=== PATIENT | female | born 1940 | race Caucasian/White ===

== ENCOUNTER 2018-09-05 19:33 | Emergency (ER) | payer MEDICARE ==
[~2018-09-05] VITALS: Ht 162.6 cm; Wt 38.6 kg
--- OUTSIDE RECORDS SUMMARY | 2018-09-05 19:36 | XMS REPORT | Continuity of Care Document ---
Author Author [facility] Interface Address Unknown Phone Unavailable Problems Problem Status Onset Date Classification Date Reported Comments Source Easy bruisability Active Diagnosis 10/14/2016 Christamatthew Dixiefabian Elevated BP without diagnosis of hypertension Active Diagnosis 10/14/2016 Christamatthew Zohreh Acute tracheobronchitis Active Problem 06/11/2017 Christamatthew Dixiefabian BMI less than 19,adult Active Problem 06/11/2017 Judekendra Pantojaimanfabian Mucopurulent chronic bronchitis Active Problem 06/11/2017 Christamatthew Dixiefabian Hypothyroidism, unspecified type Active Problem 06/11/2017 Christamatthew Dixiefabian Sebaceous cyst of skin of breast, unspecified laterality Active Diagnosis 06/11/2017 Geraldine Bruner Major depressive disorder with single episode, in full remission Active Problem 06/11/2017 Christamatthew Zohreh Accidental fall, subsequent encounter Active Diagnosis 04/05/2017 Geraldine Bruner Right elbow pain Active Diagnosis 04/05/2017 Geraldine Bruner Neck muscle spasm Active Diagnosis 07/17/2016 Christamatthew Zohreh Encounter to establish care Active Diagnosis 07/02/2016 Christamatthew Zohreh Medications Medication Details Route Status Patient Instructions Ordering Provider Order Date Source Sertraline HCl 1 tablet Orally Active 50 MG Orally Once a day [facility] 06/03/2017 Geraldine Bruner Cyclobenzaprine HCl 1 tablet Orally Active 5 MG Orally once every night [facility] 07/14/2016 Geraldine Bruner Mirtazapine 1 tablet before bedtime in the evening Orally Active 15 MG Orally Once a day [facility] 06/29/2016 Geraldine Bruner Ipratropium [place] as directed Inhalation Active 0.02 % Inhalation Twice a day [facility] 06/29/2016 Geraldine Bruenr Levofloxacin not defined NA Active [facility] Geraldine Bruner Mirtazapine 1/2 - 1 tablet before bedtime in the evening Orally Active 15 MG Orally Once a day [facility] Geraldine Bruner Advil 1 tablet with food or milk as needed Orally Active 200 MG Orally every 6 hrs [facility] Enayet Rahim Allergies, Adverse Reactions, Alerts Substance Category Reaction Severity Reaction type Status Date Reported Comments Source codeine Adverse Reaction Info Not Available Adverse Reaction Active 06/03/2017 Enayet Rahim Immunizations Immunization Date Given Site Status Last Updated Comments Source FLUCELVAX QUADRIVALENT 06/03/2017 completed Enayet Rahim Results Order Name Results Value Reference Range Date Interpretation Comments Source Vital Signs Vital Sign Value Date Comments Source Weight 88 06/03/2017 Enayet Rahim Height 64 06/03/2017 Enayet Rahim Temperature Oral (F) 96.5 F 06/03/2017 Enayet Rahim Diastolic (mm Hg) 89 06/03/2017 Enayet Rahim Systolic (mm Hg) 131 06/03/2017 Enayet Rahim Weight 89 03/24/2017 Enayet Rahim Height 64 03/24/2017 Enayet Rahim Temperature Oral (F) 97.0 F 03/24/2017 Enayet Rahim Diastolic (mm Hg) 115 03/24/2017 Enayet Rahim Systolic (mm Hg) 134 03/24/2017 Enayet Rahim Weight 91.5 10/09/2016 Enayet Rahim Height 64 10/09/2016 Enayet Rahim Temperature Oral (F) 96.5 F 10/09/2016 Enayet Rahim Diastolic (mm Hg) 102 10/09/2016 Enayet Rahim Systolic (mm Hg) 165 10/09/2016 Enayet Rahim Weight 87 07/14/2016 Enayet Rahim Height 64 07/14/2016 Enayet Rahim Temperature Oral (F) 96.0 F 07/14/2016 Enayet Rahim Diastolic (mm Hg) 83 07/14/2016 Enayet Rahim Systolic (mm Hg) 136 07/14/2016 Enayet Rahim Weight 86.5 06/29/2016 Enayet Rahim Height 64 06/29/2016 Enayet Rahim Temperature Oral (F) 94.0 F 06/29/2016 Enayet Rahim Diastolic (mm Hg) 107 06/29/2016 Enayet Rahim Systolic (mm Hg) 164 06/29/2016 Geraldine Bruner Encounters Location Location Details Encounter Type Encounter Number Reason For Visit Attending Provider ADM Date DC Date Status Source Procedures Procedure Code Date Perfomer Comments Source
--- OUTSIDE RECORDS SUMMARY | 2018-09-05 19:36 | XMS REPORT ---
Author Author Tammy Duran Organization [employer] Address Unknown Phone Unavailable Care Team Providers Care Food Writer Name Role Phone Tammy Duran CP Unavailable Allergies, Adverse Reactions, Alerts Substance Reaction Event Type codeine Info Not Available Drug Allergy Problems Problem Type Condition Code Onset Dates Condition Status Assessment Sebaceous cyst of skin of breast, unspecified laterality N60.89 Active Problem Mucopurulent chronic bronchitis J41.1 Active Problem Colon cancer screening Z12.11 Active Problem Major depressive disorder with single episode, in full remission F32.5 Active Problem Hypothyroidism, unspecified type E03.9 Active Assessment Major depressive disorder with single episode, in full remission F32.5 Active Problem Acute tracheobronchitis J20.9 Active Problem BMI less than 19,adult Z68.1 Active Medications Medication Code System Code Instructions Start Date End Date Status Dosage Sertraline HCl [facility] 34357352399 50 MG Orally Once a day Jun 03, 2017 Active 1 tablet Mirtazapine [facility] 51268968788 15 MG Orally Once a day Active 1/2 - 1 tablet before bedtime in the evening Levofloxacin [facility] [address]-18 Active not defined Advil [facility] 98371274483 200 MG Orally every 6 hrs Active 1 tablet with food or milk as needed Vital Signs Date/Time: Jun 03, 2017 BMI 15.10 Index Weight 88 lbs Height 64 in Temperature 96.5 F Blood Pressure Diastolic 89 mm Hg Blood Pressure Systolic 131 mm Hg Results No Known Results Immunizations Vaccine Administration Date FLUCELVAX QUADRIVALENT Jun 03, 2017 Summary Purpose [employer] Submission
--- OUTSIDE RECORDS SUMMARY | 2018-09-05 19:36 | XMS REPORT ---
Author Author Tammy Duran Organization [employer] Address Unknown Phone Unavailable Care Team Providers Care Electronic Repair Troubleshooter Name Role Phone Tammy Duran CP Unavailable Allergies, Adverse Reactions, Alerts Substance Reaction Event Type codeine Info Not Available Drug Allergy Problems Problem Type Condition Code Onset Dates Condition Status Problem Acute tracheobronchitis J20.9 Active Problem BMI less than 19,adult Z68.1 Active Problem Mucopurulent chronic bronchitis J41.1 Active Assessment Neck muscle spasm M62.838 Active Problem Colon cancer screening Z12.11 Active Problem Hypothyroidism, unspecified type E03.9 Active Medications Medication Code System Code Instructions Start Date End Date Status Dosage Ipratropium [place] [facility] [address]-07 0.02 % Inhalation Twice a day June 29, 2016 Nov 26, 2016 Active as directed Mirtazapine [facility] [address]-28 15 MG Orally Once a day June 29, 2016 Active 1/2 - 1 tablet before bedtime in the evening Cyclobenzaprine HCl [facility] [address]-75 5 MG Orally once every night July 14, 2016 August 03, 2016 Active 1 tablet Levofloxacin [facility] [address]-77 Active not defined Vital Signs Date/Time: July 14, 2016 BMI 14.93 Index Weight 87 lbs Height 64 in Temperature 96.0 F Blood Pressure Diastolic 83 mm Hg Blood Pressure Systolic 136 mm Hg Results No Known Results Summary Purpose [employer] Submission
--- OUTSIDE RECORDS SUMMARY | 2018-09-05 19:36 | XMS REPORT ---
Author Author Tammy Duran Organization [employer] Address Unknown Phone Unavailable Care Team Providers Care Extrusion Bender Name Role Phone Tammy Duran CP Unavailable Allergies, Adverse Reactions, Alerts Substance Reaction Event Type codeine Info Not Available Drug Allergy Problems Problem Type Condition Code Onset Dates Condition Status Assessment Easy bruisability R23.8 Active Assessment Elevated BP without diagnosis of hypertension R03.0 Active Problem Acute tracheobronchitis J20.9 Active Problem BMI less than 19,adult Z68.1 Active Problem Mucopurulent chronic bronchitis J41.1 Active Assessment BMI less than 19,adult Z68.1 Active Assessment Mucopurulent chronic bronchitis J41.1 Active Problem Colon cancer screening Z12.11 Active Problem Hypothyroidism, unspecified type E03.9 Active Medications Medication Code System Code Instructions Start Date End Date Status Dosage Levofloxacin [facility] [address]-11 Active not defined Mirtazapine [facility] [address]-81 15 MG Orally Once a day June 29, 2016 Active 1 tablet before bedtime in the evening Ipratropium [place] [facility] [address]-33 0.02 % Inhalation Twice a day June 29, 2016 Nov 26, 2016 Active as directed Vital Signs Date/Time: October 09, 2016 BMI 15.70 Index Weight 91.5 lbs Height 64 in Temperature 96.5 F Blood Pressure Diastolic 102 mm Hg Blood Pressure Systolic 165 mm Hg Results No Known Results Summary Purpose [employer] Submission
--- OUTSIDE RECORDS SUMMARY | 2018-09-05 19:36 | XMS REPORT ---
Author Author Tammy Duran Organization [employer] Address Unknown Phone Unavailable Care Team Providers Care Bottom Buffer Name Role Phone Tammy Duran CP Unavailable Allergies, Adverse Reactions, Alerts Substance Reaction Event Type codeine Info Not Available Drug Allergy Problems Problem Type Condition Code Onset Dates Condition Status Assessment Colon cancer screening Z12.11 Active Assessment Acute tracheobronchitis J20.9 Active Assessment BMI less than 19,adult Z68.1 Active Assessment Hypothyroidism, unspecified type E03.9 Active Problem Acute tracheobronchitis J20.9 Active Problem BMI less than 19,adult Z68.1 Active Problem Mucopurulent chronic bronchitis J41.1 Active Assessment Encounter to establish care Z76.89 Active Assessment Mucopurulent chronic bronchitis J41.1 Active Problem Colon cancer screening Z12.11 Active Problem Hypothyroidism, unspecified type E03.9 Active Medications Medication Code System Code Instructions Start Date End Date Status Dosage Ipratropium [place] [facility] [address]-57 0.02 % Inhalation Twice a day June 29, 2016 Nov 26, 2016 Active as directed Levofloxacin [facility] [address]-57 Active not defined Mirtazapine [facility] [address]-69 15 MG Orally Once a day June 29, 2016 Active 1/2 - 1 tablet before bedtime in the evening Vital Signs Date/Time: June 29, 2016 BMI 14.85 Index Weight 86.5 lbs Height 64 in Temperature 94.0 F Blood Pressure Diastolic 107 mm Hg Blood Pressure Systolic 164 mm Hg Results No Known Results Summary Purpose [employer] Submission
--- OUTSIDE RECORDS SUMMARY | 2018-09-05 19:36 | XMS REPORT ---
Author Author Tammy Duran Organization [employer] Address Unknown Phone Unavailable Care Team Providers Care Subject Scientific Research Name Role Phone Tammy Duran CP Unavailable Allergies, Adverse Reactions, Alerts Substance Reaction Event Type codeine Info Not Available Drug Allergy Problems Problem Type Condition Code Onset Dates Condition Status Problem Colon cancer screening Z12.11 Active Problem Acute tracheobronchitis J20.9 Active Problem Mucopurulent chronic bronchitis J41.1 Active Assessment Accidental fall, subsequent encounter W19.XXXD Active Assessment Right elbow pain M25.521 Active Problem BMI less than 19,adult Z68.1 Active Problem Hypothyroidism, unspecified type E03.9 Active Medications Medication Code System Code Instructions Start Date End Date Status Dosage Levofloxacin [facility] [address]-87 Active not defined Advil [facility] 42469308580 200 MG Orally every 6 hrs Active 1 tablet with food or milk as needed Mirtazapine [facility] 97318880049 15 MG Orally Once a day Active 1/2 - 1 tablet before bedtime in the evening Vital Signs Date/Time: Mar 24, 2017 BMI 15.28 Index Weight 89 lbs Height 64 in Temperature 97.0 F Blood Pressure Diastolic 115 mm Hg Blood Pressure Systolic 134 mm Hg Results No Known Results Summary Purpose [employer] Submission
== END 2018-09-05 20:30 | disposition home or self-care (01) ==
LOC: FSED 19:33
DX: R53.1 Weakness (principal); R53.83 Other fatigue; M79.10 Myalgia, unspecified site; I10 Essential (primary) hypertension; Z88.5 Allergy status to narcotic agent; F17.210 Nicotine dependence, cigarettes, uncomplicated
CPT/HCPCS: 99282

== ENCOUNTER → 2021-11-26 | Day surgery (SDC) | payer MEDICARE ==
[2021-11-24 15:19] LABS: BASOPHILS % 0.5 % (0.0-1.0); EOSINOPHILS # (AUTO) 0.1 (0.0-0.4); EOSINOPHILS % 2.5 % (0.0-6.0); HEMATOCRIT 37.7 % (34.2-44.1); HEMOGLOBIN 11.7 g/dL (12.0-16.0); LYMPHOCYTES % 16.8 % (18.0-39.1); MEAN CORPUSCULAR VOLUME 99.7 fL (81-99); MONOCYTES # (AUTO) 0.6 (0.2-0.8); MONOCYTES % 9.8 % (4.4-11.3); NEUTROPHILS % 70.2 % (38.7-80.0); PLATELET COUNT 243 x10e3/uL (140-360); RED BLOOD COUNT 3.78 x10e6/uL (3.6-5.1); RED CELL DISTRIBUTION WIDTH 14.7 % (11.7-14.4)
[2021-11-24 15:47] LABS: ANION GAP 14.9 mmol/L (8-16); CALCIUM 9.1 mg/dL (8.4-10.2); CREATININE, SERUM 0.79 mg/dL (0.57-1.11); POTASSIUM 4.9 mmol/L (3.5-5.1)
[~2021-11-26] MED LIST: ATORVASTATIN CA20 MG PO; B&O 60MG R/S 60 MG SUPP PR ONE; CEFTRIAXONE 1 GM VIAL ONE; FENTANYL CITRATE/PF 100MCG/2 ML INJ ONE; HYDROCODONE/APAP 5MG-325MG TAB ONE; IOPAMIDOL 610MG/1ML 300 MG/ML VIAL IV ONE; LEVOTHYROXINE50 MCG PO; METOCLOPRAMIDE HCL 10 MG/2ML VIAL ONE; METOPROLOL SUCC25 MG PO; MIDAZOLAM HCL 2 MG/2 ML VIAL ONE; ONDANSETRON HCL INJ 2MG/ML 2ML 2 MG/ML VIAL ONE; PHENAZOPYRIDINE HCL 100 MG TAB ONE; TRELEGY ELLIPT1 EACH INH; ZOLOFT50 MG PO
[2021-11-26 14:30] VITALS: BP 119/59
== END | disposition home or self-care (01) ==
LOC: OR 07:50
PROVIDERS: ATTEND Urology
DX: C65.1 Malignant neoplasm of right renal pelvis (principal); N39.0 Urinary tract infection, site not specified; N81.10 Cystocele, unspecified; N81.6 Rectocele; N36.41 Hypermobility of urethra; N95.2 Postmenopausal atrophic vaginitis; N35.92 Unspecified urethral stricture, female; N13.30 Unspecified hydronephrosis; N32.89 Other specified disorders of bladder; N13.8 Other obstructive and reflux uropathy; J44.9 Chronic obstructive pulmonary disease, unspecified; I10 Essential (primary) hypertension; M19.90 Unspecified osteoarthritis, unspecified site; Z88.6 Allergy status to analgesic agent; Z01.810 Encounter for preprocedural cardiovascular examination; Z01.818 Encounter for other preprocedural examination; Z01.812 Encounter for preprocedural laboratory examination; Z20.822 Contact with and (suspected) exposure to COVID-19; Z79.899 Other long term (current) drug therapy; Z99.81 Dependence on supplemental oxygen; Z87.891 Personal history of nicotine dependence
CPT/HCPCS: 0223U; 36415; 52332; 52354; 71046; 74420; 80048; 85025; 87086; 88112; 88305; 93005; C1758; C2617; J0696; J2250; J2405; J2765; Q9967; 88300; 88304; J3010

== ENCOUNTER → 2025-01-10 | Outpatient (REF) | payer MEDICARE ==
[~2025-01-10] MED LIST changes: +ALBUTEROL1.25 MG/3 NEB; +ALENDRONATE SOD70 MG PO; -B&O 60MG R/S 60 MG SUPP PR ONE; +CARVEDILOL3.125 MG PO; -CEFTRIAXONE 1 GM VIAL ONE; +CETIRIZINE HCL10 M1 PO; -FENTANYL CITRATE/PF 100MCG/2 ML INJ ONE; +FOLIC ACID0.4 MG PO; -HYDROCODONE/APAP 5MG-325MG TAB ONE; -IOPAMIDOL 610MG/1ML 300 MG/ML VIAL IV ONE; -METOCLOPRAMIDE HCL 10 MG/2ML VIAL ONE; -MIDAZOLAM HCL 2 MG/2 ML VIAL ONE; -ONDANSETRON HCL INJ 2MG/ML 2ML 2 MG/ML VIAL ONE; +OXYBUTYNIN CHLOR5 MG PO; +PANTOPRAZOLE SO40 MG PO; -PHENAZOPYRIDINE HCL 100 MG TAB ONE; +VENTOLIN HFA18 GM INH; +VITAMIN D3 MA125 MCG
[2025-01-10 11:34] LABS: BASOPHILS % 0.4 % (0.0-1.0); EOSINOPHILS % 3.3 % (0.0-6.0); LYMPHOCYTES % 3.8 % (18.0-39.1); MONOCYTES % 7.4 % (4.4-11.3); NEUTROPHILS % 84.3 % (38.7-80.0); RED CELL DISTRIBUTION WIDTH 16.2 % (11.7-14.4)
[2025-01-10 12:06] LABS: EST GLOMERULAR FILTRATION RATE 69 ML/MIN (>=60)
== END ==
LOC: RAD 08:00 → EDSTATUS 01-13 14:00
PROVIDERS: ATTEND Urology
DX: Z01.818 Encounter for other preprocedural examination (principal); C67.9 Malignant neoplasm of bladder, unspecified; Z53.8 Procedure and treatment not carried out for other reasons
CPT/HCPCS: 36415; 71046; 74420; 80053; 85025; 93005

== ENCOUNTER 2025-01-11 23:56 | Inpatient (IN) | payer MEDICARE ==
[~2025-01-11] VITALS: Ht 162.6 cm; Wt 38.6 kg
[2025-01-12] VITALS (17 sets, daily range): BP systolic 108–148; BP diastolic 58–85; PULSE 53–84; RESP 16–19; TEMP 97.6–98.6; O2SAT 94–100
[2025-01-12 00:52] LABS: BASOPHILS % 0.2 % (0.0-1.0); EOSINOPHILS % 2.7 % (0.0-6.0); LYMPHOCYTES % 3.3 % (18.0-39.1); MONOCYTES % 8.6 % (4.4-11.3); NEUTROPHILS % 84.5 % (38.7-80.0); RED CELL DISTRIBUTION WIDTH 16.3 % (11.7-14.4)
[2025-01-12 01:03] LABS: EST GLOMERULAR FILTRATION RATE 71.0 ML/MIN (>=60)
[2025-01-12] MEDS: ONDANSETRON HCL INJ 2MG/ML 2ML 2 MG/ML VIAL IV STA (01:34)
[2025-01-12] MEDS: Morphine 2mg Syringe 2 MG/ML SYR IV ONE (01:34)
[2025-01-12] MEDS: SODIUM CHLORIDE 0.9% 500ML 500 ML IV ONE (01:34)
[2025-01-12] MEDS ORDERED: ALBUTEROL/IPRATROPIUM 3 ML NEB NEB PRN (02:45)
[2025-01-12] MEDS ORDERED: ONDANSETRON HCL INJ 2MG/ML 2ML 2 MG/ML VIAL IV PRN (03:15)
[2025-01-12] MEDS: SODIUM CHLORIDE 0.9% 1000ML 1,000 ML IV SCH (03:50)
[2025-01-12] MEDS: ACETAMINOPHEN 1000 MG/100 ML IV STA (03:54)
[2025-01-12] MEDS: METRONIDAZOLE 500MG/NS 100ML 100 ML IV SCH (06:00)
[2025-01-12] MEDS: SODIUM CHLORIDE 0.9% 250ML 250 ML IV ONE ×3 (06:04→20:40)
[2025-01-12] MEDS: SODIUM CHLORIDE 0.9% 250ML 250 ML ONE (06:04)
[2025-01-12] MEDS: ACETAMINOPHEN 325 MG TAB PO STA (06:27)
[2025-01-12] MEDS: ACETAMINOPHEN 1000 MG/100 ML IV PRN (09:10)
[2025-01-12] MEDS: DEXTROSE 5%/0.45% SOD CHL 1,000 ML IV SCH (12:07)
[2025-01-12] MEDS: BISACODYL 10 MG SUPP PR ONE (12:07)
[2025-01-12] MEDS ORDERED: SEVOFLURANE INHAL SOLN 250 ML PEN BTL ONE (23:25)
[2025-01-12] MEDS: Morphine 2mg Syringe 2 MG/ML SYR IV PRN (23:27)
[2025-01-13] VITALS (7 sets, daily range): BP systolic 111–148; BP diastolic 66–79; PULSE 51–74; RESP 16–20; TEMP 97.4–98.5; O2SAT 96–100
[2025-01-13 02:29] LABS: % IRON SATURATION 8 % (15-50)
[2025-01-13 06:46] LABS: BASOPHILS % 0.3 % (0.0-1.0); EOSINOPHILS % 1.5 % (0.0-6.0); LYMPHOCYTES % 3.4 % (18.0-39.1); MONOCYTES % 7.8 % (4.4-11.3); NEUTROPHILS % 86.5 % (38.7-80.0); RED CELL DISTRIBUTION WIDTH 15.4 % (11.7-14.4)
[2025-01-13 07:13] LABS: LEUKOCYTE ESTERASE ,URINE NEGATIVE (NEGATIVE); PROTEIN,URINE DIPSTICK 1+ (NEGATIVE); URINE UROBILINOGEN 0.2 mg/dL (0.2 - 1)
[2025-01-13 07:14] LABS: EPITHELIAL CELLS,URINE FEW /LPF; WBC,URINE (MAN) >50 /HPF (0-5)
[2025-01-13 07:17] LABS: EST GLOMERULAR FILTRATION RATE 65 ML/MIN (>=60)
[2025-01-13 11:52] LABS: LYMPHOCYTES % (MANUAL) 9 % (19-48); MONOCYTES % (MANUAL) 4 % (3.4-9.0); NEUTROPHILS % (MANUAL) 87 % (40-74); PLATELET ESTIMATE ADEQUATE; PLATELET MORPHOLOGY COMMENT NORMAL
[2025-01-13] MEDS: ONDANSETRON HCL INJ 2MG/ML 2ML 2 MG/ML VIAL IV PRN (21:09)
[2025-01-14] VITALS (12 sets, daily range): BP systolic 96–199; BP diastolic 53–136; PULSE 54–88; RESP 18–20; TEMP 97.5–99.1; O2SAT 95–100
[2025-01-14] MEDS: IRON SUCROSE 100 MG in SODIUM CHLORIDE 0.9% 100 ML IV SCH (08:19)
[2025-01-14] MEDS: CYANOCOBALAMIN INJ 1,000 MCG/ML VIAL IM SCH (08:20)
[2025-01-14] MEDS: BISACODYL 5 MG TAB EC PO ONE ×3 (14:47→16:40)
[2025-01-14] MEDS: HYDRALAZINE HCL 20 MG/ML VIAL IV PRN (16:41)
[2025-01-14] MEDS: CYANOCOBALAMIN INJ 1,000 MCG/ML VIAL IM ONE (19:32)
[2025-01-14] MEDS: CITRATE OF MAGNESIA 300ML BOTTLE PO ONE (20:56)
[2025-01-15] VITALS (11 sets, daily range): BP systolic 108–129; BP diastolic 63–74; PULSE 55–83; RESP 16–18; TEMP 97.5–99.7; O2SAT 93–100
[2025-01-15] MEDS: CITRATE OF MAGNESIA 300ML BOTTLE PO ONE (04:37)
[2025-01-15 05:38] LABS: BASOPHILS % 0.2 % (0.0-1.0); EOSINOPHILS % 0.4 % (0.0-6.0); LYMPHOCYTES % 2.1 % (18.0-39.1); MONOCYTES % 6.7 % (4.4-11.3); NEUTROPHILS % 89.9 % (38.7-80.0); RED CELL DISTRIBUTION WIDTH 15.9 % (11.7-14.4)
[2025-01-15 06:00] LABS: EST GLOMERULAR FILTRATION RATE 64.0 ML/MIN (>=60)
[2025-01-15] MEDS: POTASSIUM CHLORIDE 20 MEQ TAB CR PO ONE ×2 (08:15→09:52)
[2025-01-15] MEDS ORDERED: MAGNESIUM SULFATE 2GM/50ML IV PRN (09:45)
[2025-01-15] MEDS: POTASSIUM CHLORIDE 40 MEQ in DEXTROSE 5%/0.9% SOD CHL 1,000 ML IV SCH (09:53)
[2025-01-15 10:01] LABS: PHOSPHORUS 2.9 MG/DL (2.3-4.7)
[2025-01-15] MEDS ORDERED: EPHEDRINE SULFATE INJ 50 MG/ML VIAL ONE (14:52)
[2025-01-15] MEDS ORDERED: MIDAZOLAM HCL 2 MG/2 ML VIAL ONE (15:51)
[2025-01-15] MEDS: MAGNESIUM HYDROXIDE 30 ML UDC PO ONE (23:16)
[2025-01-15] MEDS: BISACODYL 5 MG TAB EC PO ONE (23:16)
[2025-01-16] VITALS (11 sets, daily range): BP systolic 98–138; BP diastolic 63–86; PULSE 76–100; RESP 10–20; TEMP 95.4–99.2; O2SAT 96–100
[2025-01-16] MEDS: BISACODYL 5 MG TAB EC PO ONE (00:14)
[2025-01-16] MEDS: BISACODYL 10 MG SUPP PR ONE (01:57)
[2025-01-16 05:45] LABS: BASOPHILS % 0.3 % (0.0-1.0); EOSINOPHILS % 0.6 % (0.0-6.0); LYMPHOCYTES % 2.2 % (18.0-39.1); MONOCYTES % 9.8 % (4.4-11.3); NEUTROPHILS % 86.4 % (38.7-80.0); RED CELL DISTRIBUTION WIDTH 15.9 % (11.7-14.4)
[2025-01-16 06:20] LABS: EST GLOMERULAR FILTRATION RATE 76.0 ML/MIN (>=60)
[2025-01-16 06:41] LABS: PHOSPHORUS 1.4 MG/DL (2.3-4.7)
[2025-01-16] MEDS: CITRATE OF MAGNESIA 300ML BOTTLE PO ONE (06:47)
[2025-01-16] MEDS: ALBUTEROL/IPRATROPIUM 3 ML NEB NEB SCH (07:00)
[2025-01-16] MEDS: BUDESONIDE 0.5MG/2 ML NEB INH SCH (07:00)
[2025-01-16 13:41] LABS: ABG PCO2 48 mmHg (35-45); ABG PH 7.37 (7.35-7.45)
[2025-01-16 13:42] LABS: ABG BASE EXCESS 3.0 mmol/L (-2 - 3); ABG HCO3 28 mmol/L (22-26); ABG OXYGEN SATURATION 94.0 % (95-98); ABG PO2 75 mmHg (80-105); ABG TCO2 29
[2025-01-16] MEDS ORDERED: FENTANYL CITRATE/PF 100MCG/2 ML INJ ONE (14:32)
[2025-01-16] MEDS ORDERED: LIDOCAINE HCL 2% LOCAL INJ 5 ML SDV VIAL INJ ONE (14:32)
[2025-01-16] MEDS ORDERED: DEXAMETHASONE SOD PHOS INJ 4 MG/ML SDV ONE (14:32)
[2025-01-16] MEDS ORDERED: ONDANSETRON HCL INJ 2MG/ML 2ML 2 MG/ML VIAL ONE (14:32)
[2025-01-16] MEDS ORDERED: PROPOFOL IV EMULSION 10 MG/ML 20 ML VIAL ONE (14:32)
[2025-01-16] MEDS ORDERED: ROCURONIUM BROMIDE 1 ML IV ONE ×2 (14:32→18:26)
[2025-01-16] MEDS ORDERED: SODIUM CHLORIDE 0.9% 100 ML ONE (14:52)
[2025-01-16] MEDS ORDERED: SUCCINYLCHOLINE CHLORIDE 20 MG/ML 10ML VIAL ONE (15:59)
[2025-01-16] MEDS ORDERED: HYDROMORPHONE 2MG/ML ONE (17:39)
[2025-01-16] MEDS ORDERED: MIDAZOLAM HCL 2 MG/2 ML VIAL ONE (18:29)
[2025-01-16] MEDS ORDERED: LACTATED RINGER'S 1,000 ML INJ SCH (18:45)
[2025-01-16] MEDS: DEXTROSE 5%/0.9% SOD CHL 1,000 ML IV ONE (20:22)
[2025-01-16] MEDS: DEXMEDETOMIDINE 400MCG/NS100ML 100 ML IV PRN (20:52)
[2025-01-16 20:56] LABS: BASOPHILS % 0.1 % (0.0-1.0); EOSINOPHILS % 0.0 % (0.0-6.0); LYMPHOCYTES % 2.2 % (18.0-39.1); MONOCYTES % 6.0 % (4.4-11.3); NEUTROPHILS % 91.4 % (38.7-80.0); RED CELL DISTRIBUTION WIDTH 16.4 % (11.7-14.4)
[2025-01-16 21:21] LABS: ABG HCO3 26 mmol/L (22-26); ABG PCO2 54 mmHg (35-45); ABG PH 7.28 (7.35-7.45); ABG PO2 560 mmHg (80-105); ABG TCO2 27
[2025-01-16 21:22] LABS: ABG BASE EXCESS -1.0 mmol/L (-2 - 3); ABG OXYGEN SATURATION 100.0 % (95-98)
[2025-01-16 21:23] LABS: EST GLOMERULAR FILTRATION RATE 88.0 ML/MIN (>=60)
[2025-01-16] MEDS: SODIUM CHLORIDE 0.9% 250ML IRRIG IR SCH (22:12)
[2025-01-17] VITALS (23 sets, daily range): BP systolic 81–176; BP diastolic 46–86; PULSE 63–81; RESP 10–15; TEMP 96–97.9; O2SAT 100
[2025-01-17] MEDS: ALBUMIN 5% 0.05 GM/ML BTL IV ONE (00:12)
[2025-01-17] MEDS: FENTANYL 2000MCG/NS 250 250 ML IV PRN (00:17)
[2025-01-17] MEDS: MIDODRINE 2.5 MG TAB PO SCH (00:46)
[2025-01-17] MEDS: ALBUTEROL/IPRATROPIUM 3 ML NEB ONE (03:20)
[2025-01-17 04:57] LABS: ABG BASE EXCESS -2.0 mmol/L (-2 - 3); ABG HCO3 24 mmol/L (22-26); ABG PCO2 45 mmHg (35-45); ABG PH 7.33 (7.35-7.45); ABG PO2 164 mmHg (80-105); ABG TCO2 25
[2025-01-17 04:58] LABS: ABG OXYGEN SATURATION 99.0 % (95-98)
[2025-01-17 06:56] LABS: BASOPHILS % 0.3 % (0.0-1.0); EOSINOPHILS % 0.3 % (0.0-6.0); LYMPHOCYTES % 1.0 % (18.0-39.1); MONOCYTES % 3.3 % (4.4-11.3); NEUTROPHILS % 94.6 % (38.7-80.0); RED CELL DISTRIBUTION WIDTH 16.3 % (11.7-14.4)
[2025-01-17] MEDS: NOREPINEPHRINE 8 MG/D5W 250 ML 250 ML IV SCH (07:04)
[2025-01-17 07:16] LABS: EST GLOMERULAR FILTRATION RATE 88.0 ML/MIN (>=60)
[2025-01-17 09:17] LABS: EOSINOPHILS % (MANUAL) 2 % (0-7); LYMPHOCYTES % (MANUAL) 5 % (19-48); MONOCYTES % (MANUAL) 7 % (3.4-9.0); NEUTROPHILS % (MANUAL) 86 % (40-74); PLATELET ESTIMATE ADEQUATE; PLATELET MORPHOLOGY COMMENT NORMAL; RBC MORPHOLOGY COMMENT NORMAL
[2025-01-17] MEDS: DEXTROSE 5%/0.9% SOD CHL 1,000 ML IV SCH (16:15)
[2025-01-17] MEDS: SODIUM PHOSPHATE IN 0.9 % NACL 15 MMOL in SODIUM CHLORIDE 0.9% 250ML 250 ML IV ONE (17:00)
[2025-01-17] MEDS: HEPARIN SOD (PORCINE) 5,000 UNIT/ML VIAL SC SCH (21:31)
[2025-01-18] VITALS (28 sets, daily range): BP systolic 114–178; BP diastolic 51–96; PULSE 15–129; RESP 12–17; TEMP 97.9–98.2; O2SAT 97–100
[2025-01-18 05:55] LABS: EST GLOMERULAR FILTRATION RATE 86.0 ML/MIN (>=60)
[2025-01-18 10:43] LABS: BASOPHILS % 0.1 % (0.0-1.0); EOSINOPHILS % 0.2 % (0.0-6.0); LYMPHOCYTES % 2.7 % (18.0-39.1); MONOCYTES % 7.0 % (4.4-11.3); NEUTROPHILS % 89.1 % (38.7-80.0); RED CELL DISTRIBUTION WIDTH 16.9 % (11.7-14.4)
[2025-01-18 11:37] LABS: ABG BASE EXCESS -4.0 mmol/L (-2 - 3); ABG HCO3 23 mmol/L (22-26); ABG OXYGEN SATURATION 99.0 % (95-98); ABG PCO2 46 mmHg (35-45); ABG PH 7.29 (7.35-7.45); ABG PO2 136 mmHg (80-105); ABG TCO2 24
[2025-01-18] MEDS: KCL 20 MEQ PACKET/ ORAL SOLN NG ONE (13:01)
[2025-01-18] MEDS: Morphine 4mg INJECTION 4 MG/ML INJ IV PRN (13:01)
[2025-01-19] VITALS (24 sets, daily range): BP systolic 105–156; BP diastolic 61–89; PULSE 88–112; RESP 12–18; TEMP 97.7–98.3; O2SAT 97–100
[2025-01-19] MEDS: AMIODARONE HCL 150 MG/100 ML BAG IV ONE (02:19)
[2025-01-19 04:56] LABS: BASOPHILS % 0.1 % (0.0-1.0); EOSINOPHILS % 0.5 % (0.0-6.0); LYMPHOCYTES % 2.8 % (18.0-39.1); MONOCYTES % 6.4 % (4.4-11.3); NEUTROPHILS % 89.3 % (38.7-80.0); RED CELL DISTRIBUTION WIDTH 17.0 % (11.7-14.4)
[2025-01-19 05:12] LABS: EST GLOMERULAR FILTRATION RATE 89.0 ML/MIN (>=60)
[2025-01-19] MEDS: MAGNESIUM SULFATE 2GM/50ML 50 ML IV ONE (06:45)
[2025-01-19] MEDS: POTASSIUM CHLORIDE 20MEQ/100ML 100 ML IV SCH (06:46)
[2025-01-19] MEDS: CALCIUM GLUC 1 G/50 ML NACL 50 ML IV ONE (09:02)
[2025-01-20] VITALS (29 sets, daily range): BP systolic 91–156; BP diastolic 59–97; PULSE 84–126; RESP 12–16; TEMP 97.9–98.4; O2SAT 98–100
[2025-01-20 06:34] LABS: BASOPHILS % 0.2 % (0.0-1.0); EOSINOPHILS % 1.5 % (0.0-6.0); LYMPHOCYTES % 3.4 % (18.0-39.1); MONOCYTES % 5.4 % (4.4-11.3); NEUTROPHILS % 88.8 % (38.7-80.0); RED CELL DISTRIBUTION WIDTH 16.9 % (11.7-14.4)
[2025-01-20 06:46] LABS: EST GLOMERULAR FILTRATION RATE 90 ML/MIN (>=60)
[2025-01-20] MEDS: LEVALBUTEROL HCL SOLN NEBU 0.63 MG/3 ML NEB INH SCH (15:46)
[2025-01-21] VITALS (18 sets, daily range): BP systolic 121–142; BP diastolic 77–114; PULSE 83–117; RESP 12–19; TEMP 97.6–98.1; O2SAT 0–100
[2025-01-21 06:23] LABS: BASOPHILS % 0.2 % (0.0-1.0); EOSINOPHILS % 2.0 % (0.0-6.0); LYMPHOCYTES % 2.8 % (18.0-39.1); MONOCYTES % 4.6 % (4.4-11.3); NEUTROPHILS % 89.5 % (38.7-80.0); RED CELL DISTRIBUTION WIDTH 17.2 % (11.7-14.4)
[2025-01-21 06:40] LABS: EST GLOMERULAR FILTRATION RATE 89 ML/MIN (>=60)
[2025-01-21] MEDS: POTASSIUM CHLORIDE 20MEQ/100ML 100 ML IV SCH (10:52)
[2025-01-21] MEDS: SOD CHL 0.45%/POT CHL 20MEQ 1,000 ML IV SCH (11:45)
[2025-01-21] MEDS: IPRATROPIUM BROMIDE 0.02% 2.5 ML NEB NEB SCH (13:00)
[2025-01-21] MEDS: LEVALBUTEROL HCL SOLN NEBU 0.63 MG/3 ML NEB ONE (15:56)
[2025-01-21] MEDS: METRONIDAZOLE 500MG/NS 100ML 100 ML IV SCH (20:55)
[2025-01-22] VITALS (15 sets, daily range): BP systolic 109–130; BP diastolic 72–92; PULSE 81–141; RESP 12–20; TEMP 97.5–98.2; O2SAT 97–100
[2025-01-22 07:41] LABS: EST GLOMERULAR FILTRATION RATE 87 ML/MIN (>=60)
[2025-01-22 08:04] LABS: PHOSPHORUS 1.8 MG/DL (2.3-4.7)
[2025-01-22] MEDS: DEXTROSE 50% SYRINGE 50 ML IV ONE (08:40)
[2025-01-23] VITALS (11 sets, daily range): BP systolic 88–136; BP diastolic 63–98; PULSE 86–99; RESP 15–24; TEMP 97.7–98; O2SAT 96–100
[2025-01-23] MEDS: SOD CHL 0.45%/POT CHL 20MEQ 1,000 ML IV SCH (13:00)
[2025-01-23] MEDS: FUROSEMIDE INJ 10 MG/ML 2 ML VIAL IV ONE (14:22)
[2025-01-23] MEDS: METOPROLOL TARTRATE 25 MG TAB PO ONE (14:30)
[2025-01-23] MEDS: HEPARIN SOD (PORCINE) 5,000 UNIT/ML VIAL SC SCH (20:39)
[2025-01-23] MEDS: Morphine 4mg INJECTION 4 MG/ML INJ IV PRN (20:39)
[2025-01-24] VITALS (16 sets, daily range): BP systolic 85–114; BP diastolic 63–74; PULSE 84–111; RESP 16–22; TEMP 97.6–98.1; O2SAT 92–100
[2025-01-24 06:30] LABS: BASOPHILS % 0.1 % (0.0-1.0); EOSINOPHILS % 1.2 % (0.0-6.0); LYMPHOCYTES % 4.0 % (18.0-39.1); MONOCYTES % 6.4 % (4.4-11.3); NEUTROPHILS % 87.5 % (38.7-80.0); RED CELL DISTRIBUTION WIDTH 18.2 % (11.7-14.4)
[2025-01-24 07:00] LABS: EST GLOMERULAR FILTRATION RATE 69.0 ML/MIN (>=60)
[2025-01-24 07:18] LABS: PHOSPHORUS 3.1 MG/DL (2.3-4.7)
[2025-01-24] MEDS: D5.45%NS/KCL 20MEQ 1,000 ML IV SCH (08:46)
[2025-01-24] MEDS: HYDROCODONE/APAP 10MG-325MG TAB PO PRN (11:10)
[2025-01-24] MEDS: FUROSEMIDE INJ 10 MG/ML 2 ML VIAL IV ONE (13:17)
[2025-01-24] MEDS: METOPROLOL TARTRATE 25 MG TAB PO SCH (19:48)
[2025-01-24] MEDS: SODIUM CHLORIDE 1 GM TAB PO SCH (20:23)
[2025-01-24] MEDS: DEXTROSE 10% 1,000 ML IV SCH (20:31)
[2025-01-24] MEDS ORDERED: FUROSEMIDE INJ 10 MG/ML 4 ML VIAL IV SCH (21:00)
[2025-01-25] VITALS (25 sets, daily range): BP systolic 83–134; BP diastolic 56–83; PULSE 31–113; RESP 7–21; TEMP 97.4–99.2; O2SAT 96–100
[2025-01-25 06:30] LABS: BASOPHILS % 0.2 % (0.0-1.0); EOSINOPHILS % 1.1 % (0.0-6.0); LYMPHOCYTES % 3.0 % (18.0-39.1); MONOCYTES % 6.2 % (4.4-11.3); NEUTROPHILS % 88.7 % (38.7-80.0); RED CELL DISTRIBUTION WIDTH 18.1 % (11.7-14.4)
[2025-01-25 07:15] LABS: EST GLOMERULAR FILTRATION RATE 69.0 ML/MIN (>=60)
[2025-01-25 13:37] LABS: ABG BASE EXCESS -4.0 mmol/L (-2 - 3); ABG HCO3 23 mmol/L (22-26); ABG OXYGEN SATURATION 99.0 % (95-98); ABG PCO2 46 mmHg (35-45); ABG PH 7.29 (7.35-7.45); ABG PO2 136 mmHg (80-105); ABG TCO2 24
[2025-01-25 13:37] LABS: ABG BASE EXCESS -1.0 mmol/L (-2 - 3); ABG HCO3 26 mmol/L (22-26); ABG OXYGEN SATURATION 100.0 % (95-98); ABG PCO2 54 mmHg (35-45); ABG PH 7.28 (7.35-7.45); ABG PO2 560 mmHg (80-105); ABG TCO2 27
[2025-01-25 13:37] LABS: ABG BASE EXCESS 3.0 mmol/L (-2 - 3); ABG HCO3 28 mmol/L (22-26); ABG OXYGEN SATURATION 94.0 % (95-98); ABG PCO2 48 mmHg (35-45); ABG PH 7.37 (7.35-7.45); ABG PO2 75 mmHg (80-105); ABG TCO2 29
[2025-01-25 13:37] LABS: ABG BASE EXCESS -2.0 mmol/L (-2 - 3); ABG HCO3 24 mmol/L (22-26); ABG OXYGEN SATURATION 99.0 % (95-98); ABG PCO2 45 mmHg (35-45); ABG PH 7.33 (7.35-7.45); ABG PO2 164 mmHg (80-105); ABG TCO2 25
[2025-01-26] VITALS (12 sets, daily range): BP systolic 81–109; BP diastolic 56–73; PULSE 40–109; RESP 9–18; TEMP 98.6; O2SAT 97–100
[2025-01-26 06:20] LABS: BASOPHILS % 0.2 % (0.0-1.0); EOSINOPHILS % 1.6 % (0.0-6.0); LYMPHOCYTES % 3.5 % (18.0-39.1); MONOCYTES % 7.3 % (4.4-11.3); NEUTROPHILS % 86.6 % (38.7-80.0); RED CELL DISTRIBUTION WIDTH 18.1 % (11.7-14.4)
[2025-01-26 06:46] LABS: EST GLOMERULAR FILTRATION RATE 86.0 ML/MIN (>=60); PHOSPHORUS 2.1 MG/DL (2.3-4.7)
[2025-01-26] MEDS: FUROSEMIDE INJ 10 MG/ML 2 ML VIAL IV ONE (11:30)
[2025-01-26] MEDS: HYDROCODONE/APAP 5MG-325MG TAB PO PRN (11:58)
[2025-01-27] VITALS (19 sets, daily range): BP systolic 82–121; BP diastolic 52–79; PULSE 69–113; RESP 10–23; TEMP 96.8–97.5; O2SAT 94–100
[2025-01-28] VITALS (25 sets, daily range): BP systolic 74–117; BP diastolic 49–77; PULSE 78–125; RESP 12–22; TEMP 97.8–98.6; O2SAT 97–100
[2025-01-28 06:12] LABS: BASOPHILS % 0.1 % (0.0-1.0); EOSINOPHILS % 1.0 % (0.0-6.0); LYMPHOCYTES % 3.1 % (18.0-39.1); MONOCYTES % 4.8 % (4.4-11.3); NEUTROPHILS % 90.6 % (38.7-80.0); RED CELL DISTRIBUTION WIDTH 18.5 % (11.7-14.4)
[2025-01-28 06:25] LABS: EST GLOMERULAR FILTRATION RATE 89.0 ML/MIN (>=60)
[2025-01-28] MEDS: HEPARIN SOD (PORCINE) 5,000 UNIT/ML VIAL SC SCH (20:14)
[2025-01-29] VITALS (16 sets, daily range): BP systolic 103–130; BP diastolic 60–96; PULSE 76–107; RESP 0–18; TEMP 97.6–97.9; O2SAT 92–100
[2025-01-29] MEDS: Morphine 4mg INJECTION 4 MG/ML INJ IV PRN (00:58)
[2025-01-29] MEDS: METOCLOPRAMIDE HCL 10 MG/2ML VIAL IV SCH (09:50)
[2025-01-30] VITALS (11 sets, daily range): BP systolic 97–132; BP diastolic 72–92; PULSE 41–97; RESP 11–19; TEMP 97.7–98.7; O2SAT 98–100
[2025-01-30] MEDS: SODIUM CHLORIDE 0.9% 250ML 250 ML ONE (09:00)
[2025-01-30 09:12] LABS: BASOPHILS % 0.3 % (0.0-1.0); EOSINOPHILS % 0.7 % (0.0-6.0); LYMPHOCYTES % 4.1 % (18.0-39.1); MONOCYTES % 4.6 % (4.4-11.3); NEUTROPHILS % 89.9 % (38.7-80.0); RED CELL DISTRIBUTION WIDTH 19.9 % (11.7-14.4)
[2025-01-30 09:48] LABS: EST GLOMERULAR FILTRATION RATE 88.0 ML/MIN (>=60)
[2025-01-30 10:05] LABS: PHOSPHORUS 2.2 MG/DL (2.3-4.7)
[2025-01-30] MEDS: MAGNESIUM SULFATE 2GM/50ML 50 ML IV PRN (14:04)
[2025-01-30] MEDS: HYDROCODONE/APAP 10MG-325MG TAB PO PRN (22:52)
[2025-01-31] VITALS (13 sets, daily range): BP systolic 107–135; BP diastolic 69–96; PULSE 69–84; RESP 14–20; TEMP 97.6–97.8; O2SAT 79–100
[2025-01-31] MEDS: IRON-VITAMIN-MINERAL CAPSULE PO SCH (09:31)
[2025-01-31] MEDS ORDERED: PANTOPRAZOLE SOD 40 MG TABEC PO ONE (10:30)
[2025-01-31] MEDS: NITROGLYCERIN 0.4 MG SUBL SL PRN (10:32)
[2025-01-31] MEDS: SODIUM CHLORIDE 0.9% 250ML 250 ML IV ONE (10:58)
[2025-01-31] MEDS: ASPIRIN 81 MG CHEW TAB PO ONE (10:58)
[2025-01-31] MEDS ORDERED: MUPIROCIN 2% OINT 22 GM TUBE TOP SCH (11:00)
[2025-01-31] MEDS ORDERED: ENOXAPARIN SOD INJ 40 MG/0.4 ML SYR SC STA (11:06)
[2025-02-01] VITALS (13 sets, daily range): BP systolic 113–130; BP diastolic 61–90; PULSE 54–100; RESP 17–21; TEMP 97.3–98.2; O2SAT 98–100
[2025-02-01 05:36] LABS: BASOPHILS % 0.1 % (0.0-1.0); EOSINOPHILS % 0.9 % (0.0-6.0); LYMPHOCYTES % 4.5 % (18.0-39.1); MONOCYTES % 4.8 % (4.4-11.3); NEUTROPHILS % 89.4 % (38.7-80.0); RED CELL DISTRIBUTION WIDTH 20.4 % (11.7-14.4)
[2025-02-01 05:52] LABS: EST GLOMERULAR FILTRATION RATE 86.0 ML/MIN (>=60)
[2025-02-01] MEDS: HYDROCODONE/APAP 5MG-325MG TAB PO PRN (09:36)
[2025-02-02] VITALS (11 sets, daily range): BP systolic 97–137; BP diastolic 66–91; PULSE 73–97; RESP 16–21; TEMP 97.5–97.7; O2SAT 18–100
[2025-02-02] MEDS ORDERED: HYDROCODONE/APAP 10MG-325MG TAB PO PRN (09:00)
[2025-02-02] MEDS: METOCLOPRAMIDE HCL 10 MG TAB PO SCH (09:00)
[2025-02-02] MEDS: METOPROLOL TARTRATE INJ 1 MG/ML VIAL IV ONE (10:02)
[2025-02-02] MEDS ORDERED: Morphine 4mg INJECTION 4 MG/ML INJ IV PRN (11:15)
[2025-02-02] MEDS ORDERED: HEPARIN SOD (PORCINE) 5,000 UNIT/ML VIAL SC SCH (21:00)
[2025-02-02] MEDS: APIXABAN 2.5 MG TABLET PO SCH (21:16)
[2025-02-02] MEDS: METOPROLOL TARTRATE 25 MG TAB PO SCH (21:16)
[2025-02-02] MEDS: CYANOCOBALAMIN 1,000 MCG TAB PO ONE (23:43)
[2025-02-03] VITALS (11 sets, daily range): BP systolic 107–152; BP diastolic 63–82; PULSE 65–98; RESP 16–18; TEMP 97.6–98.4; O2SAT 95–100
[2025-02-03] MEDS: PANTOPRAZOLE SOD 40 MG TABEC PO SCH (08:31)
[2025-02-03] MEDS: CYANOCOBALAMIN 1,000 MCG TAB PO SCH (08:31)
[2025-02-03] MEDS: IRON SUCROSE 300 MG in SODIUM CHLORIDE 0.9% 250ML 250 ML IV SCH (14:28)
[2025-02-04] VITALS (11 sets, daily range): BP systolic 128–142; BP diastolic 68–82; PULSE 64–95; RESP 16–20; TEMP 97.7–98.4; O2SAT 95–99
[2025-02-04 06:05] LABS: BASOPHILS % 0.4 % (0.0-1.0); EOSINOPHILS % 1.3 % (0.0-6.0); LYMPHOCYTES % 6.1 % (18.0-39.1); MONOCYTES % 7.9 % (4.4-11.3); NEUTROPHILS % 84.0 % (38.7-80.0); RED CELL DISTRIBUTION WIDTH 21.4 % (11.7-14.4)
[2025-02-04 06:50] LABS: EST GLOMERULAR FILTRATION RATE 86.0 ML/MIN (>=60); PHOSPHORUS 2.0 MG/DL (2.3-4.7)
[2025-02-04] MEDS: HYDROCODONE/APAP 5MG-325MG TAB PO PRN (15:00)
[2025-02-04] MEDS: BISACODYL 10 MG SUPP PR ONE (22:11)
[2025-02-05] VITALS (11 sets, daily range): BP systolic 113–154; BP diastolic 58–96; PULSE 70–102; RESP 16–20; TEMP 97.7–98; O2SAT 95–100
[2025-02-05] MEDS: BISACODYL 10 MG SUPP PR ONE (08:32)
[2025-02-05] MEDS: DULOXETINE HCL 30 MG DELAYED RELEASE PO SCH (08:33)
[2025-02-05] MEDS ORDERED: ONDANSETRON HCL 4 MG ORAL DISINTEGRATING TAB PO PRN (09:00)
[2025-02-05] MEDS: SODIUM CHLORIDE 1 GM TAB PO SCH (09:00)
[2025-02-05] MEDS ORDERED: ACETAMINOPHEN 325 MG TAB PO PRN (09:00)
[2025-02-05] MEDS ORDERED: MAGNESIUM HYDROXIDE 30 ML UDC PO PRN (09:00)
[2025-02-05] MEDS: SENNA-S TABLET PO SCH (10:04)
[2025-02-05] MEDS: LEVOTHYROXINE SODIUM 25 MCG TABLET PO SCH (10:04)
== END 2025-02-05 20:08 | DRG 329 ==
LOC: ER 01-12 00:31 → ERHOLD 01-12 02:33 → MED/SURG2 01-12 03:30 → ICU 01-16 19:00 → IMCU 01-22 16:51 → ICU 01-24 22:17 → MED/SURG 01-30 01:25
PROVIDERS: ADMIT Internal Medicine; ATTEND Internal Medicine
PROC: 30233N1 Transfusion of Nonautologous Red Blood Cells into Peripheral Vein, Percutaneous Approach (ICD-10-PCS; principal; 2025-01-12)
PROC: 0T9B8ZZ Drainage of Bladder, Via Natural or Artificial Opening Endoscopic (ICD-10-PCS; 2025-01-15)
PROC: BT1F1ZZ Fluoroscopy of Left Kidney, Ureter and Bladder using Low Osmolar Contrast (ICD-10-PCS; 2025-01-15)
PROC: 0TBB8ZZ Excision of Bladder, Via Natural or Artificial Opening Endoscopic (ICD-10-PCS; 2025-01-16)
PROC: 0DTF0ZZ Resection of Right Large Intestine, Open Approach (ICD-10-PCS; 2025-01-16)
PROC: 0FT40ZZ Resection of Gallbladder, Open Approach (ICD-10-PCS; 2025-01-16)
PROC: 0DQV0ZZ Repair Mesentery, Open Approach (ICD-10-PCS; 2025-01-16)
PROC: 4A033B1 Measurement of Arterial Pressure, Peripheral, Percutaneous Approach (ICD-10-PCS; 2025-01-16)
PROC: 0DQB0ZZ Repair Ileum, Open Approach (ICD-10-PCS; 2025-01-16 15:54)
PROC: 05HY33Z Insertion of Infusion Device into Upper Vein, Percutaneous Approach (ICD-10-PCS; 2025-01-17)
DX: K56.609 Unspecified intestinal obstruction, unspecified as to partial versus complete obstruction (principal); E43 Unspecified severe protein-calorie malnutrition; J18.9 Pneumonia, unspecified organism; J96.21 Acute and chronic respiratory failure with hypoxia; D62 Acute posthemorrhagic anemia; Z68.1 Body mass index [BMI] 19.9 or less, adult; K57.32 Diverticulitis of large intestine without perforation or abscess without bleeding; C7A.8 Other malignant neuroendocrine tumors; R57.9 Shock, unspecified; I47.10 Supraventricular tachycardia, unspecified; J90 Pleural effusion, not elsewhere classified; J98.11 Atelectasis; K59.00 Constipation, unspecified; Z90.6 Acquired absence of other parts of urinary tract; Z99.81 Dependence on supplemental oxygen; I10 Essential (primary) hypertension; J44.9 Chronic obstructive pulmonary disease, unspecified; J43.9 Emphysema, unspecified; N31.9 Neuromuscular dysfunction of bladder, unspecified; D50.9 Iron deficiency anemia, unspecified; K63.89 Other specified diseases of intestine; C67.9 Malignant neoplasm of bladder, unspecified; R31.0 Gross hematuria; R31.29 Other microscopic hematuria; N95.2 Postmenopausal atrophic vaginitis; N81.10 Cystocele, unspecified; N81.6 Rectocele; E87.6 Hypokalemia; I49.1 Atrial premature depolarization; E53.8 Deficiency of other specified B group vitamins; E16.2 Hypoglycemia, unspecified; R91.1 Solitary pulmonary nodule; R62.7 Adult failure to thrive; M85.80 Other specified disorders of bone density and structure, unspecified site; D63.0 Anemia in neoplastic disease; K81.1 Chronic cholecystitis; Z85.51 Personal history of malignant neoplasm of bladder; Z85.528 Personal history of other malignant neoplasm of kidney; Z87.891 Personal history of nicotine dependence; Z90.49 Acquired absence of other specified parts of digestive tract; Z90.5 Acquired absence of kidney; Z90.710 Acquired absence of both cervix and uterus; Z79.51 Long term (current) use of inhaled steroids; Z79.890 Hormone replacement therapy; Z88.5 Allergy status to narcotic agent; Z88.6 Allergy status to analgesic agent; Z88.1 Allergy status to other antibiotic agents; Z91.041 Radiographic dye allergy status; Z74.01 Bed confinement status; Z99.3 Dependence on wheelchair; Z87.440 Personal history of urinary (tract) infections
CPT/HCPCS: 36415; 36569; 36600; 71045; 71250; 74018; 74019; 74176; 74420; 80048; 80053; 81001; 82140; 82270; 82550; 82607; 82746; 82805; 82948; 83540; 83735; 84100; 84132; 84466; 84484; 85014; 85018; 85025; 85045; 86850; 86900; 86920; 87086; 88304; 88305; 88307; 88309; 88342; 93005; 93306; 94002; 94003; 94640; 94799; 96411; 99252; 99285; C1758; J0330; J0360; J0696; J1100; J1171; J1644; J1756; J1938; J2003; J2250; J2270; J2405; J2470; J2543; J2765; J3420; J3475; J3480; J7030; J7040; J7042; J7050; J7799; P9016